=== PATIENT | female | born 1930 | race Asian ===

== ENCOUNTER 2017-02-17 19:00 | Inpatient (IN) | payer MEDICARE ==
[~2017-02-17] VITALS: Ht 162.6 cm; Wt 50.8 kg
[~2017-02-17 19:00] MED LIST: ASPI-1159 PO; ATOR10TA69 PO; CHOL20009 PO; EVIS60 PO; LISI-186 PO; VITA1TAB30 PO
[2017-02-17 20:00] VITALS: BP_SYST 134; BP_SYST 139; BP_DIAS 89
[2017-02-17] MEDS ORDERED: MORPHINE SULFATE 2 MG/ML CPJ (NOT FOR IM USE) IV PRN (20:00)
[2017-02-17] MEDS ORDERED: BISACODYL 10MG SUPP PR PRN (20:00)
[2017-02-17] MEDS ORDERED: CLONIDINE 0.1MG TABLET PO PRN (20:00)
[2017-02-17] MEDS ORDERED: DIPHENHYDRAMINE 25MG CAPSULE PO PRN (20:00)
[2017-02-17] MEDS ORDERED: HYDROCODONE/ACETAMINOPHEN 10/325MG TABLET PO PRN (20:00)
[2017-02-17] MEDS ORDERED: ONDANSETRON HCL 4MG TABLET PO PRN (20:00)
[2017-02-17] MEDS ORDERED: IPRATROPIUM/ALBUTEROL 0.5-3(2.5)MG/3ML NEB HHN PRN (20:00)
[2017-02-17] MEDS ORDERED: FAMOTIDINE 20MG TABLET PO SCH (21:00)
[2017-02-18 06:53] LABS: BASOPHILS % 0.5 % (0.0-2.0); EOSINOPHILS % 2.3 % (0.0-5.0); HEMATOCRIT. 34.9 % (36.0-48.0); HEMOGLOBIN. 11.7 g/dL (12.0-16.0); LYMPHOCYTES % 16.7 % (20.0-50.0); MEAN CORPUSCULAR VOLUME 83.5 fL (81.0-99.0); MEAN PLATELET VOLUME 8.1 fl (7.4-10.4); MONOCYTES % 12.9 % (2.0-8.0); NEUTROPHILS % 67.6 % (40.0-76.0); PLATELET 178 x1000/uL (130-400); RED BLOOD CELL COUNT 4.18 mill/uL (4.2-5.4); RED CELL DISTRIBUTION WIDTH 13.8 % (11.6-14.6)
[2017-02-18 07:54] LABS: CARBON DIOXIDE 28 mEq/L (21-32); CHLORIDE 101 mEq/L (98-107)
[2017-02-18 08:00] VITALS: BP 148/81
[2017-02-18] MEDS: DOCUSATE SODIUM 250MG CAPSULE PO SCH (08:20)
[2017-02-18] MEDS ORDERED: FAMOTIDINE 20MG TABLET PO SCH ×2 (09:00→11:30)
[2017-02-18 20:00] VITALS: BP 134/82
[2017-02-18] MEDS: FAMOTIDINE 20MG TABLET PO SCH (21:55)
[2017-02-18] MEDS: ACETAMINOPHEN 325MG TABLET PO PRN (21:56)
[2017-02-19 04:22] LABS: CLARITY URINE CLEAR (CLEAR); COLOR URINE YELLOW (YELLOW); GLUCOSE URINE NEGATIVE (NEGATIVE); KETONES URINE NEGATIVE (NEGATIVE); LEUKOCYTE ESTERASE URINE 2+ (NEGATIVE); NITRITE URINE NEGATIVE (NEGATIVE); OCCULT BLOOD URINE 1+ (NEGATIVE); PH URINE 7.5 (4.5-8.0); PROTEIN URINE NEGATIVE (NEGATIVE); SPECIFIC GRAVITY URINE 1.012 (1.005-1.030); UROBILINOGEN URINE 0.2 E.U./dL (0.2-1.0)
[2017-02-19 08:00] VITALS: BP 134/83
[2017-02-19] MEDS: FAMOTIDINE 20MG TABLET PO SCH ×2 (09:06→21:20)
[2017-02-19] MEDS: DOCUSATE SODIUM 250MG CAPSULE PO SCH (09:06)
[2017-02-19] MEDS: HYDROCODONE/ACETAMINOPHEN 5/325MG TABLET PO PRN ×2 (09:52→14:31)
[2017-02-19 19:00] VITALS: BP 139/79
[2017-02-20 08:00] VITALS: BP 154/81
[2017-02-20] MEDS: DOCUSATE SODIUM 250MG CAPSULE PO SCH (08:10)
[2017-02-20] MEDS: FAMOTIDINE 20MG TABLET PO SCH ×2 (08:12→21:07)
[2017-02-20] MEDS: HYDROCODONE/ACETAMINOPHEN 5/325MG TABLET PO PRN ×2 (08:12→12:48)
[2017-02-20] MEDS: SIMETHICONE 80MG TABLET CHEW PO SCH ×3 (12:48→21:07)
[2017-02-20] MEDS: ENOXAPARIN 30MG/0.3ML SYR SUBCUT SCH (18:35)
[2017-02-20 20:00] VITALS: BP 124/71
[2017-02-21 08:00] VITALS: BP 155/89
[2017-02-21] MEDS: DOCUSATE SODIUM 250MG CAPSULE PO SCH ×2 (08:16→18:01)
[2017-02-21] MEDS: FAMOTIDINE 20MG TABLET PO SCH ×2 (08:16→21:03)
[2017-02-21] MEDS: SIMETHICONE 80MG TABLET CHEW PO SCH ×4 (08:17→21:03)
[2017-02-21] MEDS: LISINOPRIL 5MG TABLET PO SCH (08:17)
[2017-02-21] MEDS: HYDROCODONE/APAP 7.5/325MG 1 TAB TABLET PO PRN (10:17)
[2017-02-21] MEDS ORDERED: LACTULOSE 20G/30ML UDC PO PRN (13:30)
[2017-02-21] MEDS: HYDROCODONE/ACETAMINOPHEN 5/325MG TABLET PO PRN (14:41)
[2017-02-21] MEDS: BISACODYL 5MG TABLET PO PRN (15:57)
[2017-02-21] MEDS: ENOXAPARIN 30MG/0.3ML SYR SUBCUT SCH (18:03)
[2017-02-21 20:00] VITALS: BP 122/78
[2017-02-21] MEDS ORDERED: SENNOSIDES/DOCUSATE SOD 8.6/50MG TABLET PO PRN (21:00)
[2017-02-22 08:00] VITALS: BP 133/80
[2017-02-22] MEDS: FAMOTIDINE 20MG TABLET PO SCH ×2 (08:45→21:06)
[2017-02-22] MEDS: LISINOPRIL 5MG TABLET PO SCH (08:45)
[2017-02-22] MEDS: DOCUSATE SODIUM 250MG CAPSULE PO SCH ×2 (08:45→17:40)
[2017-02-22] MEDS: SIMETHICONE 80MG TABLET CHEW PO SCH ×4 (08:45→21:06)
[2017-02-22] MEDS: HYDROCODONE/APAP 7.5/325MG 1 TAB TABLET PO PRN (08:46)
[2017-02-22] MEDS: HYDROCODONE/ACETAMINOPHEN 5/325MG TABLET PO PRN (12:14)
[2017-02-22] MEDS: ENOXAPARIN 30MG/0.3ML SYR SUBCUT SCH (17:42)
[2017-02-22 20:00] VITALS: BP 121/77
[2017-02-23] MEDS: HYDROCODONE/APAP 7.5/325MG 1 TAB TABLET PO PRN (06:37)
[2017-02-23 08:00] VITALS: BP 121/74
[2017-02-23] MEDS: DOCUSATE SODIUM 250MG CAPSULE PO SCH ×2 (08:43→17:53)
[2017-02-23] MEDS: SIMETHICONE 80MG TABLET CHEW PO SCH ×4 (08:43→21:52)
[2017-02-23] MEDS: LISINOPRIL 5MG TABLET PO SCH (08:44)
[2017-02-23] MEDS: FAMOTIDINE 20MG TABLET PO SCH ×2 (08:44→21:52)
[2017-02-23] MEDS ORDERED: HYDROCODONE/ACETAMINOPHEN 5/325MG TABLET PO PRN (11:15)
[2017-02-23] MEDS: ENOXAPARIN 30MG/0.3ML SYR SUBCUT SCH (17:53)
[2017-02-23 20:00] VITALS: BP 127/82
[2017-02-23 21:37] LABS: CLARITY URINE SL HAZY (CLEAR); COLOR URINE YELLOW (YELLOW); GLUCOSE URINE NEGATIVE (NEGATIVE); PH URINE 5.5 (4.5-8.0); PROTEIN URINE NEGATIVE (NEGATIVE)
[2017-02-23 21:38] LABS: KETONES URINE NEGATIVE (NEGATIVE); LEUKOCYTE ESTERASE URINE 1+ (NEGATIVE); NITRITE URINE NEGATIVE (NEGATIVE); OCCULT BLOOD URINE 2+ (NEGATIVE)
[2017-02-24 05:15] LABS: BASOPHILS % 0.6 % (0.0-2.0); EOSINOPHILS % 1.1 % (0.0-5.0); HEMATOCRIT. 35.2 % (36.0-48.0); HEMOGLOBIN. 11.9 g/dL (12.0-16.0); LYMPHOCYTES % 15.3 % (20.0-50.0); MEAN CORPUSCULAR HEMOGLOBIN 28.1 pg (28.0-32.0); MEAN CORPUSCULAR VOLUME 82.9 fL (81.0-99.0); MEAN PLATELET VOLUME 7.5 fl (7.4-10.4); MONOCYTES % 7.5 % (2.0-8.0); NEUTROPHILS % 75.5 % (40.0-76.0); PLATELET 291 x1000/uL (130-400); RED BLOOD CELL COUNT 4.25 mill/uL (4.2-5.4)
[2017-02-24] MEDS: ACETAMINOPHEN 325MG TABLET PO PRN (05:33)
[2017-02-24 06:25] LABS: CHLORIDE 101 mEq/L (98-107)
[2017-02-24 06:56] LABS: CARBON DIOXIDE 30 mEq/L (21-32); TOTAL IRON BINDING CAPACITY 262 ug/dL (250-450)
[2017-02-24 08:00] VITALS: BP 126/71
[2017-02-24] MEDS: DOCUSATE SODIUM 250MG CAPSULE PO SCH ×2 (08:25→17:41)
[2017-02-24] MEDS: SIMETHICONE 80MG TABLET CHEW PO SCH ×4 (08:25→21:13)
[2017-02-24] MEDS: FAMOTIDINE 20MG TABLET PO SCH ×2 (08:25→21:13)
[2017-02-24] MEDS: LISINOPRIL 5MG TABLET PO SCH (08:25)
[2017-02-24] MEDS: ASCORBIC ACID 500 MG TABLET PO SCH (10:39)
[2017-02-24 13:16] LABS: FERRITIN 41 ng/mL (10-291)
[2017-02-24] MEDS: FERROUS SULFATE 325MG TABLET PO SCH ×2 (13:42→17:41)
[2017-02-24 15:56] LABS: VITAMIN B12 SERUM 881 pg/mL (211-911)
[2017-02-24 16:04] LABS: FOLIC ACID (FOLATE) SERUM > 20.00 ng/mL (>5.38)
[2017-02-24] MEDS: GABAPENTIN 100MG CAPSULE PO SCH (17:41)
[2017-02-24] MEDS: POTASSIUM CHLORIDE 20MEQ TABLET SR PO SCH ×3 (17:41→23:21)
[2017-02-24] MEDS: ENOXAPARIN 30MG/0.3ML SYR SUBCUT SCH (17:42)
[2017-02-24 20:00] VITALS: BP 121/69
[2017-02-24] MEDS ORDERED: POTASSIUM CHLORIDE 20MEQ TABLET SR PO NR (23:15)
[2017-02-25 08:00] VITALS: BP 142/79
[2017-02-25] MEDS: FAMOTIDINE 20MG TABLET PO SCH ×2 (09:22→21:24)
[2017-02-25] MEDS: GABAPENTIN 100MG CAPSULE PO SCH ×2 (09:22→17:20)
[2017-02-25] MEDS: SIMETHICONE 80MG TABLET CHEW PO SCH ×4 (09:22→21:24)
[2017-02-25] MEDS: DOCUSATE SODIUM 250MG CAPSULE PO SCH ×2 (09:22→17:20)
[2017-02-25] MEDS: FERROUS SULFATE 325MG TABLET PO SCH ×3 (09:22→17:20)
[2017-02-25] MEDS: ASCORBIC ACID 500 MG TABLET PO SCH (09:22)
[2017-02-25] MEDS: LISINOPRIL 5MG TABLET PO SCH (09:23)
[2017-02-25] MEDS: ENOXAPARIN 30MG/0.3ML SYR SUBCUT SCH (17:22)
[2017-02-25 20:00] VITALS: BP 139/73
[2017-02-26 08:00] VITALS: BP 121/61
[2017-02-26] MEDS: DOCUSATE SODIUM 250MG CAPSULE PO SCH ×2 (08:08→18:07)
[2017-02-26] MEDS: FAMOTIDINE 20MG TABLET PO SCH ×2 (08:08→21:38)
[2017-02-26] MEDS: FERROUS SULFATE 325MG TABLET PO SCH ×3 (08:08→18:07)
[2017-02-26] MEDS: LISINOPRIL 5MG TABLET PO SCH (08:08)
[2017-02-26] MEDS: ASCORBIC ACID 500 MG TABLET PO SCH (08:08)
[2017-02-26] MEDS: GABAPENTIN 100MG CAPSULE PO SCH ×2 (08:08→18:07)
[2017-02-26] MEDS: SIMETHICONE 80MG TABLET CHEW PO SCH ×4 (08:09→21:38)
[2017-02-26] MEDS: HYDROCODONE/APAP 7.5/325MG 1 TAB TABLET PO PRN (08:11)
[2017-02-26] MEDS ORDERED: NA PHOS,M-B/NA PHOS,DI-BA ENEMA 118ML PR NR (12:45)
[2017-02-26] MEDS: OXYCODONE HCL 5MG TABLET PO SCH ×2 (13:37→17:00)
[2017-02-26] MEDS: LACTULOSE 20G/30ML UDC PO SCH ×3 (13:37→21:38)
[2017-02-26] MEDS: ENOXAPARIN 30MG/0.3ML SYR SUBCUT SCH (18:08)
[2017-02-26 19:05] LABS: CLARITY URINE CLEAR (CLEAR); COLOR URINE YELLOW (YELLOW); GLUCOSE URINE NEGATIVE (NEGATIVE); KETONES URINE NEGATIVE (NEGATIVE); LEUKOCYTE ESTERASE URINE NEGATIVE (NEGATIVE); NITRITE URINE NEGATIVE (NEGATIVE); OCCULT BLOOD URINE NEGATIVE (NEGATIVE); PROTEIN URINE NEGATIVE (NEGATIVE); SPECIFIC GRAVITY URINE 1.022 (1.005-1.030)
[2017-02-26 20:00] VITALS: BP 105/66
[2017-02-27] MEDS: HYDROCODONE/APAP 7.5/325MG 1 TAB TABLET PO PRN (06:55)
[2017-02-27 08:00] VITALS: BP 113/69
[2017-02-27] MEDS ORDERED: NA PHOS,M-B/NA PHOS,DI-BA ENEMA 118ML PR PRN (09:00)
[2017-02-27] MEDS: DOCUSATE SODIUM 250MG CAPSULE PO SCH ×2 (09:02→17:10)
[2017-02-27] MEDS: FERROUS SULFATE 325MG TABLET PO SCH ×3 (09:02→17:10)
[2017-02-27] MEDS: ASCORBIC ACID 500 MG TABLET PO SCH (09:03)
[2017-02-27] MEDS: FAMOTIDINE 20MG TABLET PO SCH ×2 (09:03→21:00)
[2017-02-27] MEDS: SIMETHICONE 80MG TABLET CHEW PO SCH ×3 (09:03→17:10)
[2017-02-27] MEDS: GABAPENTIN 100MG CAPSULE PO SCH ×2 (09:03→17:10)
[2017-02-27] MEDS: LISINOPRIL 5MG TABLET PO SCH (09:04)
[2017-02-27] MEDS: BISACODYL 10MG SUPP PR SCH (09:06)
[2017-02-27] MEDS: OXYCODONE HCL 5MG TABLET PO SCH ×3 (09:06→17:11)
[2017-02-27] MEDS ORDERED: SIMETHICONE 80MG TABLET CHEW PO SCH (13:00)
[2017-02-27] MEDS: ENOXAPARIN 30MG/0.3ML SYR SUBCUT SCH (17:11)
[2017-02-27 20:00] VITALS: BP 119/67
[2017-02-28] MEDS: ACETAMINOPHEN 325MG TABLET PO PRN (06:26)
[2017-02-28 08:00] VITALS: BP 118/61
[2017-02-28] MEDS: DOCUSATE SODIUM 250MG CAPSULE PO SCH ×2 (08:19→17:43)
[2017-02-28] MEDS: SIMETHICONE 80MG TABLET CHEW PO SCH ×3 (08:20→17:43)
[2017-02-28] MEDS: OXYCODONE HCL 5MG TABLET PO SCH ×3 (08:20→17:43)
[2017-02-28] MEDS: ASCORBIC ACID 500 MG TABLET PO SCH (08:20)
[2017-02-28] MEDS: FERROUS SULFATE 325MG TABLET PO SCH ×3 (08:21→17:43)
[2017-02-28] MEDS: BISACODYL 10MG SUPP PR SCH (08:21)
[2017-02-28] MEDS: LISINOPRIL 5MG TABLET PO SCH (08:21)
[2017-02-28] MEDS: FAMOTIDINE 20MG TABLET PO SCH ×2 (08:21→20:50)
[2017-02-28] MEDS: GABAPENTIN 100MG CAPSULE PO SCH ×2 (08:21→17:43)
[2017-02-28] MEDS: HYDROCODONE/APAP 7.5/325MG 1 TAB TABLET PO PRN (10:42)
[2017-02-28] MEDS ORDERED: HYDROCODONE/ACETAMINOPHEN 5/325MG TABLET PO PRN (11:15)
[2017-02-28] MEDS: ENOXAPARIN 30MG/0.3ML SYR SUBCUT SCH (17:45)
[2017-02-28 20:30] VITALS: BP 125/92
[2017-03-01] MEDS: HYDROCODONE/APAP 7.5/325MG 1 TAB TABLET PO PRN (06:41)
[2017-03-01 08:00] VITALS: BP 117/73
[2017-03-01] MEDS: DOCUSATE SODIUM 250MG CAPSULE PO SCH ×2 (08:32→17:40)
[2017-03-01] MEDS: FERROUS SULFATE 325MG TABLET PO SCH ×3 (08:32→17:40)
[2017-03-01] MEDS: FAMOTIDINE 20MG TABLET PO SCH ×2 (08:32→20:54)
[2017-03-01] MEDS: LISINOPRIL 5MG TABLET PO SCH (08:32)
[2017-03-01] MEDS: BISACODYL 10MG SUPP PR SCH (08:32)
[2017-03-01] MEDS: GABAPENTIN 100MG CAPSULE PO SCH ×2 (08:32→17:40)
[2017-03-01] MEDS: SIMETHICONE 80MG TABLET CHEW PO SCH ×3 (08:32→17:40)
[2017-03-01] MEDS: OXYCODONE HCL 5MG TABLET PO SCH ×3 (08:34→17:44)
[2017-03-01] MEDS: ASCORBIC ACID 500 MG TABLET PO SCH (08:34)
[2017-03-01] MEDS: ENOXAPARIN 30MG/0.3ML SYR SUBCUT SCH (17:41)
[2017-03-01 20:00] VITALS: BP 100/71
[2017-03-02] MEDS: HYDROCODONE/APAP 7.5/325MG 1 TAB TABLET PO PRN (06:50)
[2017-03-02 08:00] VITALS: BP 125/79
[2017-03-02] MEDS: FAMOTIDINE 20MG TABLET PO SCH ×2 (09:06→21:55)
[2017-03-02] MEDS: DOCUSATE SODIUM 250MG CAPSULE PO SCH ×2 (09:06→17:52)
[2017-03-02] MEDS: SIMETHICONE 80MG TABLET CHEW PO SCH ×3 (09:06→17:52)
[2017-03-02] MEDS: GABAPENTIN 100MG CAPSULE PO SCH ×2 (09:06→17:53)
[2017-03-02] MEDS: ASCORBIC ACID 500 MG TABLET PO SCH (09:06)
[2017-03-02] MEDS: FERROUS SULFATE 325MG TABLET PO SCH ×3 (09:06→17:52)
[2017-03-02] MEDS: LISINOPRIL 5MG TABLET PO SCH (09:06)
[2017-03-02] MEDS: OXYCODONE HCL 5MG TABLET PO SCH ×3 (09:06→17:52)
[2017-03-02] MEDS: ENOXAPARIN 30MG/0.3ML SYR SUBCUT SCH (17:52)
[2017-03-02 19:12] LABS: 25-HYDROXY VITAMIN D3 28 ng/mL (.)
[2017-03-02 20:03] VITALS: BP_SYST 111; BP_SYST 138; BP_SYST 157; BP_SYST 160; BP_DIAS 65; BP_DIAS 68; BP_DIAS 71; BP_DIAS 92
[2017-03-03 08:00] VITALS: BP 116/70
[2017-03-03] MEDS: ASCORBIC ACID 500 MG TABLET PO SCH (09:04)
[2017-03-03] MEDS: LISINOPRIL 5MG TABLET PO SCH (09:04)
[2017-03-03] MEDS: SIMETHICONE 80MG TABLET CHEW PO SCH ×3 (09:04→17:49)
[2017-03-03] MEDS: GABAPENTIN 100MG CAPSULE PO SCH ×2 (09:04→17:49)
[2017-03-03] MEDS: DOCUSATE SODIUM 250MG CAPSULE PO SCH ×2 (09:04→17:48)
[2017-03-03] MEDS: FAMOTIDINE 20MG TABLET PO SCH ×2 (09:04→20:15)
[2017-03-03] MEDS: FERROUS SULFATE 325MG TABLET PO SCH ×3 (09:05→17:48)
[2017-03-03] MEDS: OXYCODONE HCL 5MG TABLET PO SCH ×4 (09:06→17:00)
[2017-03-03] MEDS: BISACODYL 5MG TABLET PO PRN (09:14)
[2017-03-03 14:20] VITALS: BP 117/73
[2017-03-03] MEDS ORDERED: BISACODYL 10MG SUPP PR PRN (16:00)
[2017-03-03] MEDS ORDERED: HYDROCODONE/APAP 7.5/325MG 1 TAB TABLET PO PRN (17:15)
[2017-03-03] MEDS: ENOXAPARIN 30MG/0.3ML SYR SUBCUT SCH (17:49)
[2017-03-03 17:50] VITALS: BP 121/68
[2017-03-03 20:00] VITALS: BP 135/87
[2017-03-04 08:00] VITALS: BP 136/92
[2017-03-04] MEDS: ASCORBIC ACID 500 MG TABLET PO SCH (08:29)
[2017-03-04] MEDS: FAMOTIDINE 20MG TABLET PO SCH ×2 (08:29→22:00)
[2017-03-04] MEDS: FERROUS SULFATE 325MG TABLET PO SCH ×3 (08:29→16:57)
[2017-03-04] MEDS: SIMETHICONE 80MG TABLET CHEW PO SCH ×3 (08:29→16:56)
[2017-03-04] MEDS: DOCUSATE SODIUM 250MG CAPSULE PO SCH ×2 (08:29→16:47)
[2017-03-04] MEDS: LISINOPRIL 5MG TABLET PO SCH (08:29)
[2017-03-04] MEDS: GABAPENTIN 100MG CAPSULE PO SCH ×2 (08:29→16:56)
[2017-03-04] MEDS: OXYCODONE HCL 5MG TABLET PO SCH ×3 (09:00→16:56)
[2017-03-04] MEDS: ENOXAPARIN 30MG/0.3ML SYR SUBCUT SCH (16:48)
[2017-03-04 20:00] VITALS: BP 100/64
[2017-03-05] VITALS: BP 112/74
[2017-03-05 06:02] LABS: HEMATOCRIT 38.6 % (36.0-48.0); HEMOGLOBIN 13.1 g/dL (12.0-16.0); MEAN CORPUSCULAR HEMOGLOBIN 28.8 pg (28.0-32.0); MEAN CORPUSCULAR VOLUME 84.8 fL (81.0-99.0); PLATELET 316 x1000/uL (130-400); RED BLOOD CELL COUNT 4.55 mill/uL (4.2-5.4); RED CELL DISTRIBUTION WIDTH 15.4 % (11.6-14.6)
[2017-03-05 08:00] VITALS: BP 107/67
[2017-03-05] MEDS: LISINOPRIL 5MG TABLET PO SCH (08:38)
[2017-03-05] MEDS: DOCUSATE SODIUM 250MG CAPSULE PO SCH ×2 (08:39→17:28)
[2017-03-05] MEDS: GABAPENTIN 100MG CAPSULE PO SCH ×2 (08:39→17:27)
[2017-03-05] MEDS: ASCORBIC ACID 500 MG TABLET PO SCH (08:39)
[2017-03-05] MEDS: FAMOTIDINE 20MG TABLET PO SCH (08:39)
[2017-03-05] MEDS: SIMETHICONE 80MG TABLET CHEW PO SCH ×3 (08:39→17:27)
[2017-03-05] MEDS: FERROUS SULFATE 325MG TABLET PO SCH ×3 (08:39→17:27)
[2017-03-05] MEDS: OXYCODONE HCL 5MG TABLET PO SCH ×3 (08:39→17:00)
[2017-03-05] MEDS: BISACODYL 10MG SUPP PR SCH (17:27)
[2017-03-05] MEDS: ENOXAPARIN 30MG/0.3ML SYR SUBCUT SCH (17:27)
[2017-03-05 20:00] VITALS: BP_SYST 106; BP_SYST 119; BP_DIAS 67; BP_DIAS 72
[2017-03-05] MEDS: SENNOSIDES/DOCUSATE SOD 8.6/50MG TABLET PO SCH (21:35)
[2017-03-06 08:00] VITALS: BP 115/72
[2017-03-06] MEDS: SIMETHICONE 80MG TABLET CHEW PO SCH ×3 (08:12→17:24)
[2017-03-06] MEDS: FAMOTIDINE 20MG TABLET PO SCH (08:12)
[2017-03-06] MEDS: FERROUS SULFATE 325MG TABLET PO SCH ×3 (08:12→17:25)
[2017-03-06] MEDS: GABAPENTIN 100MG CAPSULE PO SCH ×2 (08:12→17:24)
[2017-03-06] MEDS: DOCUSATE SODIUM 250MG CAPSULE PO SCH ×2 (08:12→17:24)
[2017-03-06] MEDS: ASCORBIC ACID 500 MG TABLET PO SCH (08:12)
[2017-03-06] MEDS: BISACODYL 10MG SUPP PR SCH (08:13)
[2017-03-06] MEDS: OXYCODONE HCL 5MG TABLET PO SCH ×3 (08:13→17:00)
[2017-03-06] MEDS: LISINOPRIL 5MG TABLET PO SCH (08:19)
[2017-03-06] MEDS: ENOXAPARIN 30MG/0.3ML SYR SUBCUT SCH (17:24)
[2017-03-06 20:00] VITALS: BP_SYST 119; BP_SYST 127; BP_DIAS 70; BP_DIAS 74
[2017-03-06] MEDS: SENNOSIDES/DOCUSATE SOD 8.6/50MG TABLET PO SCH (21:46)
[2017-03-07 08:00] VITALS: BP 140/81
[2017-03-07] MEDS: ASCORBIC ACID 500 MG TABLET PO SCH (08:31)
[2017-03-07] MEDS: FAMOTIDINE 20MG TABLET PO SCH (08:32)
[2017-03-07] MEDS: SIMETHICONE 80MG TABLET CHEW PO SCH ×3 (08:32→16:23)
[2017-03-07] MEDS: GABAPENTIN 100MG CAPSULE PO SCH ×2 (08:32→16:23)
[2017-03-07] MEDS: LISINOPRIL 5MG TABLET PO SCH (08:32)
[2017-03-07] MEDS: DOCUSATE SODIUM 250MG CAPSULE PO SCH ×2 (08:33→16:29)
[2017-03-07] MEDS: BISACODYL 10MG SUPP PR SCH (08:33)
[2017-03-07] MEDS: BISACODYL 5MG TABLET PO PRN (08:33)
[2017-03-07] MEDS: FERROUS SULFATE 325MG TABLET PO SCH ×3 (08:34→16:23)
[2017-03-07] MEDS: OXYCODONE HCL 5MG TABLET PO SCH ×3 (08:34→16:24)
[2017-03-07] MEDS: ENOXAPARIN 30MG/0.3ML SYR SUBCUT SCH (16:24)
[2017-03-07 20:00] VITALS: BP 105/68
[2017-03-07] MEDS: SENNOSIDES/DOCUSATE SOD 8.6/50MG TABLET PO SCH (20:28)
[2017-03-08 08:00] VITALS: BP 120/66
[2017-03-08] MEDS: FAMOTIDINE 20MG TABLET PO SCH (08:25)
[2017-03-08] MEDS: GABAPENTIN 100MG CAPSULE PO SCH ×2 (08:25→17:13)
[2017-03-08] MEDS: SIMETHICONE 80MG TABLET CHEW PO SCH ×3 (08:25→17:13)
[2017-03-08] MEDS: FERROUS SULFATE 325MG TABLET PO SCH ×3 (08:25→17:13)
[2017-03-08] MEDS: DOCUSATE SODIUM 250MG CAPSULE PO SCH ×2 (08:26→17:13)
[2017-03-08] MEDS: ASCORBIC ACID 500 MG TABLET PO SCH (08:26)
[2017-03-08] MEDS: LISINOPRIL 5MG TABLET PO SCH (08:26)
[2017-03-08] MEDS: OXYCODONE HCL 5MG TABLET PO SCH ×2 (08:31→13:00)
[2017-03-08] MEDS: BISACODYL 10MG SUPP PR SCH (08:35)
[2017-03-08] MEDS ORDERED: HYDROCODONE/APAP 7.5/325MG 1 TAB TABLET PO PRN (15:30)
[2017-03-08] MEDS: ENOXAPARIN 30MG/0.3ML SYR SUBCUT SCH (17:16)
[2017-03-08 20:00] VITALS: BP 117/80
[2017-03-08] MEDS: SENNOSIDES/DOCUSATE SOD 8.6/50MG TABLET PO SCH (20:47)
[2017-03-09 07:00] VITALS: BP 121/68
[2017-03-09] MEDS: DOCUSATE SODIUM 250MG CAPSULE PO SCH ×2 (08:10→17:22)
[2017-03-09] MEDS: FAMOTIDINE 20MG TABLET PO SCH (08:11)
[2017-03-09] MEDS: LISINOPRIL 5MG TABLET PO SCH (08:11)
[2017-03-09] MEDS: SIMETHICONE 80MG TABLET CHEW PO SCH ×3 (08:11→17:22)
[2017-03-09] MEDS: GABAPENTIN 100MG CAPSULE PO SCH ×2 (08:11→17:22)
[2017-03-09] MEDS: OXYCODONE HCL 10MG TABLET SR 12HR PO SCH ×3 (08:11→17:00)
[2017-03-09] MEDS: ASCORBIC ACID 500 MG TABLET PO SCH (08:11)
[2017-03-09] MEDS: FERROUS SULFATE 325MG TABLET PO SCH ×3 (08:11→17:22)
[2017-03-09] MEDS: BISACODYL 10MG SUPP PR SCH (17:22)
[2017-03-09] MEDS: ENOXAPARIN 30MG/0.3ML SYR SUBCUT SCH (17:23)
[2017-03-09 20:00] VITALS: BP 118/76
[2017-03-09] MEDS: SENNOSIDES/DOCUSATE SOD 8.6/50MG TABLET PO SCH (20:12)
[2017-03-10 08:00] VITALS: BP 123/82
[2017-03-10] MEDS: DOCUSATE SODIUM 250MG CAPSULE PO SCH (08:32)
[2017-03-10] MEDS: ASCORBIC ACID 500 MG TABLET PO SCH (08:32)
[2017-03-10] MEDS: BISACODYL 10MG SUPP PR SCH (08:33)
[2017-03-10] MEDS: SIMETHICONE 80MG TABLET CHEW PO SCH (08:33)
[2017-03-10] MEDS: FERROUS SULFATE 325MG TABLET PO SCH (08:33)
[2017-03-10] MEDS: FAMOTIDINE 20MG TABLET PO SCH (08:33)
[2017-03-10] MEDS: GABAPENTIN 100MG CAPSULE PO SCH (08:33)
[2017-03-10] MEDS: LISINOPRIL 5MG TABLET PO SCH (08:34)
[2017-03-10] MEDS: OXYCODONE HCL 10MG TABLET SR 12HR PO SCH (08:37)
[2017-03-10 14:01] VITALS: BP 123/82
== END 2017-03-10 15:07 | disposition home health service (06) | DRG 551 ==
PROVIDERS: ADMIT Psychiatry & Neurology Neurology; ATTEND Internal Medicine Critical Care Medicine
DX: M48.02 Spinal stenosis, cervical region (principal); G82.50 Quadriplegia, unspecified; G95.9 Disease of spinal cord, unspecified; G95.29 Other cord compression; M48.04 Spinal stenosis, thoracic region; E21.3 Hyperparathyroidism, unspecified; E78.5 Hyperlipidemia, unspecified; I10 Essential (primary) hypertension; I45.10 Unspecified right bundle-branch block; M81.0 Age-related osteoporosis without current pathological fracture; G89.29 Other chronic pain; E79.0 Hyperuricemia without signs of inflammatory arthritis and tophaceous disease; K44.9 Diaphragmatic hernia without obstruction or gangrene; K57.90 Diverticulosis of intestine, part unspecified, without perforation or abscess without bleeding; K59.09 Other constipation; K29.60 Other gastritis without bleeding; K20.9 Esophagitis, unspecified; F39 Unspecified mood [affective] disorder; K64.9 Unspecified hemorrhoids; R26.9 Unspecified abnormalities of gait and mobility; K59.03 Drug induced constipation; T40.605A Adverse effect of unspecified narcotics, initial encounter; Y92.89 Other specified places as the place of occurrence of the external cause; Z83.3 Family history of diabetes mellitus
CPT/HCPCS: 36415; 74000; 80048; 81001; 81003; 82270; 82306; 82607; 82728; 82746; 83540; 83550; 84132; 84443; 84630; 85025; 85027; 87086; 92523; 93970; 97110; 97112; 97116; 97162; 97167; 97530; 97532; 97535; A6261; C1893; J1650; L0172

== ENCOUNTER → 2017-11-27 | Outpatient (CLI) | payer MEDICARE ==
[~2017-11-27] MED LIST changes: -ASPI-1159 PO
== END | disposition home or self-care (01) ==
LOC: RAD 13:23
PROVIDERS: ATTEND Neurological Surgery
DX: M50.323 Other cervical disc degeneration at C6-C7 level (principal); E11.9 Type 2 diabetes mellitus without complications
CPT/HCPCS: 72052